=== PATIENT | female | born 1990 | race Caucasian/White ===

== ENCOUNTER 2018-10-10 21:06 | Inpatient (IN) | payer OTHER ==
[~2018-10-10] VITALS: Ht 152.4 cm; Wt 44.0 kg
[2018-10-10] MEDS ORDERED: OSEL75CA (21:25)
== END 2018-10-18 19:22 | disposition home or self-care (01) | DRG 195 ==
LOC: ER 21:06 → MEDJ 10-11 11:14
PROVIDERS: ADMIT Internal Medicine
PROC: 3E0F7GC Introduction of Other Therapeutic Substance into Respiratory Tract, Via Natural or Artificial Opening (ICD-10-PCS; principal; 2018-10-11)
PROC: 8E0ZXY6 Isolation (ICD-10-PCS; 2018-10-11)
DX: J09.X2 Influenza due to identified novel influenza A virus with other respiratory manifestations (principal); E86.0 Dehydration; D72.818 Other decreased white blood cell count; D69.49 Other primary thrombocytopenia

== ENCOUNTER 2019-08-16 19:41 | Emergency (ER) | payer OTHER ==
[~2019-08-16] VITALS: Ht 157.5 cm; Wt 47.6 kg
[~2019-08-16 19:41] MED LIST: OSEL75CA
== END 2019-08-17 03:03 | disposition home or self-care (01) ==
LOC: ER 19:41
DX: M94.0 Chondrocostal junction syndrome [Tietze] (principal); B34.9 Viral infection, unspecified

== ENCOUNTER 2019-10-14 09:31 | Emergency (ER) | payer OTHER ==
[~2019-10-14] VITALS: Ht 149.9 cm; Wt 45.4 kg
== END 2019-10-14 22:11 | disposition home or self-care (01) ==
LOC: ER 09:31
DX: R59.0 Localized enlarged lymph nodes (principal)

== ENCOUNTER 2022-05-14 16:53 | Emergency (ER) | payer OTHER ==
[~2022-05-14] VITALS: Ht 152.4 cm; Wt 47.6 kg
== END 2022-05-14 22:23 | disposition home or self-care (01) ==
LOC: ER 16:53
DX: R10.84 Generalized abdominal pain (principal)

== ENCOUNTER 2022-09-15 17:47 | Emergency (ER) | payer OTHER ==
[~2022-09-15] VITALS: Ht 152.4 cm; Wt 52.2 kg
== END 2022-09-15 20:31 | disposition home or self-care (01) ==
LOC: ER 17:47
DX: B34.9 Viral infection, unspecified (principal); Z20.822 Contact with and (suspected) exposure to COVID-19

== ENCOUNTER 2023-01-05 21:55 | Emergency (ER) | payer OTHER ==
[~2023-01-05] VITALS: Ht 152.4 cm; Wt 49.9 kg
== END 2023-01-06 00:08 | disposition home or self-care (01) ==
LOC: ER 21:55
DX: R50.9 Fever, unspecified (principal); G43.809 Other migraine, not intractable, without status migrainosus; Z88.8 Allergy status to other drugs, medicaments and biological substances; U07.1 COVID-19